=== PATIENT | female | born 1985 | race Caucasian/White ===

== ENCOUNTER 2018-04-30 08:14 | Emergency (ER) | payer SELFPAY ==
--- NOTE | 2018-04-30 09:03 | ERPHSYRPT ---
- History of Present Illness Time Seen by Provider: 04/30/18 08:45 Historian: patient Exam Limitations: no limitations Patient Subjective Stated Complaint: vomiting and upper abd pain/burning for five days Triage Nursing Assessment: ambulated to room per self. skin w/d, color normal. tender in upper abd. abd soft with normal bowel sounds. Physician History: 33 y/o white female presents with epigastric abd pain described as burning. associated vomiting. sx for 5 days. pt has no h/o abd surgeries. pt has not had a menstrual period since the beginning of march. pt does feel bloated belching and gassy. not related to food intake Timing/Duration: day(s) (5) Activities at Onset: none Quality: burning Abdominal Pain Onset Location: epigastric Pain Radiation: no radiation Severity of Pain-Max: mild Severity of Pain-Current: mild Modifying Factors: Improves With: nothing Associated Symptoms: heartburn, nausea, vomiting, No chest pain, No diaphoresis , No diarrhea, No fever/chills, No fatigue, No headache, No neck pain, No shortness of breath, No syncope Allergies/Adverse Reactions: No Known Drug Allergies Allergy (Unverified 04/30/18 08:42) Hx Tetanus, Diphtheria Vaccination/Date Given: No Hx Influenza Vaccination/Date Given: No Hx Pneumococcal Vaccination/Date Given: No - Review of Systems Constitutional: No Symptoms, No Fever, No Chills, No Weakness Eyes: No Symptoms, No Eye Pain Ears, Nose, & Throat: No Symptoms Respiratory: No Symptoms, No Cough, No Dyspnea, No Stridor, No Wheezing Cardiac: No Symptoms, No Chest Pain, No Palpitations, No Syncope Abdominal/Gastrointestinal: Abdominal Pain, Nausea, Vomiting, No Diarrhea Genitourinary Symptoms: No Symptoms, No Dysuria, No Frequency, No Hematuria Musculoskeletal: No Symptoms, No Back Pain, No Deformity, No Fall, No Injury Skin: No Symptoms Neurological: No Symptoms Psychological: No Symptoms Endocrine: No Symptoms Hematologic/Lymphatic: No Symptoms Immunological/Allergic: No Symptoms All Other Systems: Reviewed and Negative - Past Medical History Pertinent Past Medical History: Yes Neurological History: No Pertinent History ENT History: No Pertinent History Cardiac History: No Pertinent History Respiratory History: No Pertinent History Endocrine Medical History: No Pertinent History Musculoskeletal History: No Pertinent History GI Medical History: No Pertinent History History: No Pertinent History Psycho-Social History: No Pertinent History Female Reproductive Disorders: No Pertinent History Other Medical History: polycystic ovarys - Past Surgical History Past Surgical History: No Neuro Surgical History: No Pertinent History Cardiac: No Pertinent History Respiratory: No Pertinent History Gastrointestinal: No Pertinent History Genitourinary: No Pertinent History Musculoskeletal: No Pertinent History Female Surgical History: No Pertinent History - Social History Smoking Status: Current every day smoker How long have you smoked: 18 Exposure to second hand smoke: Yes Drug Use: marijuana Patient Lives Alone: No - Female History Hx Last Menstrual Period: 03/22/18 Hx Now: (unsure) - Nursing Vital Signs Nursing Vital Signs: Initial Vital Signs Temperature 97.2 F 04/30/18 08:18 Pulse Rate 59 L 04/30/18 08:18 Respiratory Rate 16 04/30/18 08:18 Blood Pressure 117/67 04/30/18 08:18 O2 Sat by Pulse Oximetry 99 04/30/18 08:18 Pain Scale Pain Intensity 5 - Physical Exam General Appearance: no apparent distress, alert, anxiety Eye Exam: PERRL/EOMI, eyes nml inspection Ears, Nose, Throat Exam: normal ENT inspection, moist mucous membranes Neck Exam: normal inspection, non-tender, supple, full range of motion Respiratory Exam: normal breath sounds, lungs clear, airway intact, No chest tenderness, No respiratory distress, No accessory muscle use, No rhonchi, No wheezing, No stridor Cardiovascular Exam: regular rate/rhythm, normal heart sounds, normal peripheral pulses Gastrointestinal/Abdomen Exam: soft, normal bowel sounds, tenderness ( epigastric burning), No guarding, No rebound Pelvic Exam: not done Rectal Exam: not done Back Exam: normal inspection, normal range of motion, No CVA tenderness, No vertebral tenderness Extremity Exam: normal inspection, normal range of motion, pelvis stable Neurologic Exam: alert, oriented x 3, cooperative, 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 Skin Exam: normal color, warm, dry Lymphatic Exam: No adenopathy SpO2 Interpretation: normal SpO2: 99 Oxygen Delivery: Room Air - Course Nursing assessment & vital signs reviewed: Yes Ordered Tests: Active Orders 24 hr Category Date Time Status IV Insertion STAT Care 04/30/18 09:04 Active AMYLASE Stat Lab 04/30/18 08:40 Completed CBC W DIFF Stat Lab 04/30/18 08:40 Completed CMP Stat Lab 04/30/18 08:40 Completed CULTURE,URINE Stat Lab 04/30/18 08:40 Received HCG,QUALITATIVE URINE Stat Lab 04/30/18 08:40 Completed LIPASE Stat Lab 04/30/18 08:40 Completed Lactic Acid Stat Lab 04/30/18 09:12 Completed UA W/RFX UR CULTURE Stat Lab 04/30/18 08:40 Completed Medication Summary Discontinued Medications Generic Name Dose Route Start Last Admin Trade Name Freq PRN Reason Stop Dose Admin Al Hydrox/Mg Hydrox/Simethicone Confirm 04/30/18 09:46 Maalox Es 30 Ml Unit Dose Administered 04/30/18 09:47 Dose 30 ml .ROUTE .STK-MED ONE Famotidine 40 mg 04/30/18 09:04 04/30/18 09:23 Pepcid 20 Mg Vial IV 04/30/18 09:05 40 mg STAT ONE Administration Famotidine Confirm 04/30/18 09:19 Pepcid 20 Mg Vial Administered 04/30/18 09:20 Dose 40 mg IV .STK-MED ONE Sodium Chloride 1,000 mls @ 999 mls/hr 04/30/18 09:04 04/30/18 09:23 Sodium Chloride 0.9% 1000 Ml IV 04/30/18 10:04 999 mls/hr .Q1H1M STA Administration Sodium Chloride Confirm 04/30/18 09:19 Sodium Chloride 0.9% 1000 Ml Administered 04/30/18 09:20 Dose 1,000 mls @ ud .ROUTE .STK-MED ONE Lidocaine HCl Confirm 04/30/18 09:46 Xylocaine Hcl Viscous * Administered 04/30/18 09:47 Dose 1 ml .ROUTE .STK-MED ONE Lidocaine HCl Confirm 04/30/18 09:47 Xylocaine Hcl Viscous * Administered 04/30/18 09:48 Dose 14 ml .ROUTE .STK-MED ONE Magnesium Hydroxide 45 ml 04/30/18 09:41 04/30/18 09:50 Gi Cocktail 45 Ml (Maalox/Lidocaine) PO 04/30/18 09:42 45 ml STAT ONE Administration Ondansetron HCl 4 mg 04/30/18 09:04 04/30/18 09:24 Zofran 4 Mg/2 Ml Vial IV 04/30/18 09:05 4 mg STAT ONE Administration Ondansetron HCl Confirm 04/30/18 09:19 Zofran 4 Mg/2 Ml Vial Administered 04/30/18 09:20 Dose 4 mg .ROUTE .STK-MED ONE Lab/Rad Data: Laboratory Result Diagrams 04/30/18 08:40 04/30/18 08:40 Laboratory Results 04/30/18 04/30/18 04/30/18 Range/Units 09:12 08:40 08:40 WBC (4.0-10.5) K/mm3 RBC (4.1-5.4) M/mm3 Hgb (12.0-16.0) gm/dl Hct (35-47) % MCV (78-100) fl MCH (26-32) pg MCHC (32-36) g/dl RDW (11.5-14.0) % Plt Count (150-450) K/mm3 MPV (6-9.5) fl Gran % (36.0-66.0) % Eos # (Auto) (0-0.5) Absolute Lymphs (auto) (1.0-4.6) Absolute Monos (auto) (0.0-1.3) Lymphocytes % (24.0-44.0) % Monocytes % (0.0-12.0) % Eosinophils % (0.00-5.0) % Basophils % (0.0-0.4) % Absolute Granulocytes (1.4-6.9) Basophils # (0-0.4) Sodium (137-145) mmol/L Potassium (3.5-5.1) mmol/L Chloride (98-107) mmol/L Carbon Dioxide (22-30) mmol/L Anion Gap (5-15) MEQ/L BUN (7-17) mg/dL Creatinine (0.52-1.04) mg/dL Estimated GFR ML/MIN Glucose (74-106) mg/dL Lactic Acid 1.6 (0.4-2.0) Calcium (8.4-10.2) mg/dL Total Bilirubin (0.2-1.3) mg/dL AST (14-36) U/L ALT (0-35) U/L Alkaline Phosphatase (38-126) U/L Serum Total Protein (6.3-8.2) g/dL Albumin (3.5-5.0) g/dL Amylase (30-110) U/L Lipase (23-300) U/L Urine Color YELLOW (YELLOW) Urine Appearance SLIGHTLY CLOUDY (CLEAR) Urine pH 5.0 (5-6) Ur Specific [place] 1.013 (1.005-1.025) Urine Protein NEGATIVE (Negative) Urine Ketones NEGATIVE (NEGATIVE) Urine Blood NEGATIVE (0-5) Brian/ul Urine Nitrite NEGATIVE (NEGATIVE) Urine Bilirubin NEGATIVE (NEGATIVE) Urine Urobilinogen NEGATIVE (0-1) mg/dL Ur Leukocyte Esterase NEGATIVE (NEGATIVE) Urine WBC (Auto) 0-2 (0-5) /HPF U Epithel Cells (Auto) FEW (FEW) /HPF Urine Bacteria (Auto) MODERATE (NEGATIVE) /HPF Urine Mucus (Auto) SLIGHT (NEGATIVE) /HPF Urine Culture Reflexed YES (NO) Urine Glucose NEGATIVE (NEGATIVE) mg/dL Urine HCG, Qual NEGATIVE (Negative) 04/30/18 04/30/18 Range/Units 08:40 08:40 WBC 10.0 (4.0-10.5) K/mm3 RBC 4.28 (4.1-5.4) M/mm3 Hgb 13.5 (12.0-16.0) gm/dl Hct 40.3 (35-47) % MCV 94.2 (78-100) fl MCH 31.5 (26-32) pg MCHC 33.5 (32-36) g/dl RDW 12.9 (11.5-14.0) % Plt Count 222 (150-450) K/mm3 MPV 11.3 H (6-9.5) fl Gran % 60.8 (36.0-66.0) % Eos # (Auto) 0.61 H (0-0.5) Absolute Lymphs (auto) 2.53 (1.0-4.6) Absolute Monos (auto) 0.75 (0.0-1.3) Lymphocytes % 25.4 (24.0-44.0) % Monocytes % 7.5 (0.0-12.0) % Eosinophils % 6.1 H (0.00-5.0) % Basophils % 0.2 (0.0-0.4) % Absolute Granulocytes 6.06 (1.4-6.9) Basophils # 0.02 (0-0.4) Sodium 139 (137-145) mmol/L Potassium 4.1 (3.5-5.1) mmol/L Chloride 106 (98-107) mmol/L Carbon Dioxide 25 (22-30) mmol/L Anion Gap 12.0 (5-15) MEQ/L BUN 12 (7-17) mg/dL Creatinine 0.85 (0.52-1.04) mg/dL Estimated GFR > 60.0 ML/MIN Glucose 101 (74-106) mg/dL Lactic Acid (0.4-2.0) Calcium 9.1 (8.4-10.2) mg/dL Total Bilirubin 0.30 (0.2-1.3) mg/dL AST 29 (14-36) U/L ALT 30 (0-35) U/L Alkaline Phosphatase 88 (38-126) U/L Serum Total Protein 7.2 (6.3-8.2) g/dL Albumin 4.3 (3.5-5.0) g/dL Amylase 72 (30-110) U/L Lipase 90 (23-300) U/L Urine Color (YELLOW) Urine Appearance (CLEAR) Urine pH (5-6) Ur Specific [place] (1.005-1.025) Urine Protein (Negative) Urine Ketones (NEGATIVE) Urine Blood (0-5) Brian/ul Urine Nitrite (NEGATIVE) Urine Bilirubin (NEGATIVE) Urine Urobilinogen (0-1) mg/dL Ur Leukocyte Esterase (NEGATIVE) Urine WBC (Auto) (0-5) /HPF U Epithel Cells (Auto) (FEW) /HPF Urine Bacteria (Auto) (NEGATIVE) /HPF Urine Mucus (Auto) (NEGATIVE) /HPF Urine Culture Reflexed (NO) Urine Glucose (NEGATIVE) mg/dL Urine HCG, Qual (Negative) - Progress Progress: improved, re-examined Counseled pt/family regarding: lab results, diagnosis, need for follow-up - Departure Time of Disposition: 10:17 Departure Disposition: Home Clinical Impression: Epigastric abdominal pain Condition: Stable Critical Care Time: No Referrals: DAKOTA ADLER [Primary Care Provider] - Additional Instructions: avoid fatty, greasy spicy foods. follow up with primary doctor for further management. Prescriptions: Ranitidine HCl [Zantac] 150 mg PO BID #10 tablet
[2018-04-30] MEDS ORDERED: Pepcid 20 MG VIAL IV ONE ×2 (09:04→09:19)
[2018-04-30] MEDS ORDERED: Zofran 4 MG/2 ML VIAL IV ONE (09:04)
[2018-04-30] MEDS ORDERED: Sodium Chloride 0.9% 1000 ML 1,000 ML IV STA (09:04)
[2018-04-30] MEDS ORDERED: Zofran 4 MG/2 ML VIAL ONE (09:19)
[2018-04-30] MEDS ORDERED: Sodium Chloride 0.9% 1000 ML 1,000 ML ONE (09:19)
[2018-04-30 09:24] LABS: BASOPHIL % 0.2 % (0.0-0.4); Basophil (Absolute #) 0.02 (0-0.4); Eosinophil % 6.1 % (0.00-5.0); Eosinophil (Absolute #) 0.61 (0-0.5); Granulocyte Absolute (ANC) 6.06 (1.4-6.9); Granulocytes % 60.8 % (36.0-66.0); Hematocrit 40.3 % (35-47); Hemoglobin 13.5 gm/dl (12.0-16.0); Lymphocyte (Absolute #) 2.53 (1.0-4.6); Lymphocytes % 25.4 % (24.0-44.0); Mean Cell Volume 94.2 fl (78-100); Mean Corpuscular Hemoglobin 31.5 pg (26-32); Mean Corpuscular Hgb Concent. 33.5 g/dl (32-36); Mean Platelet Volume 11.3 fl (6-9.5); Monocyte (Absolute #) 0.75 (0.0-1.3); Monocytes % 7.5 % (0.0-12.0); Platelet Count 222 K/mm3 (150-450); Red Blood Count 4.28 M/mm3 (4.1-5.4); Red Cell Distribution Width 12.9 % (11.5-14.0)
[2018-04-30 09:26] LABS: Appearance SLIGHTLY CLOUDY (CLEAR); Bilirubin NEGATIVE (NEGATIVE); Blood NEGATIVE Ery/ul (0-5); Glucose NEGATIVE (NEGATIVE); Ketones NEGATIVE (NEGATIVE); Leukocyte Esterase NEGATIVE (NEGATIVE); Nitrite NEGATIVE (NEGATIVE); Protein,Urine Dip NEGATIVE (Negative); Specific Gravity 1.013 (1.005-1.025); Urobilinogen NEGATIVE mg/dL (0-1)
[2018-04-30 09:37] LABS: ALBUMIN 4.3 g/dL (3.5-5.0); ALKALINE PHOSPHATASE 88 U/L (38-126); AMYLASE 72 U/L (30-110); BLOOD UREA NITROGEN 12 mg/dL (7-17); CHLORIDE 106 mmol/L (98-107); Calcium 9.1 mg/dL (8.4-10.2); Carbon Dioxide 25 mmol/L (22-30); Creatinine 1 0.85 mg/dL (0.52-1.04); Glucose 101 mg/dL (74-106); LIPASE 90 U/L (23-300); Potassium 4.1 mmol/L (3.5-5.1); SGOT/AST 29 U/L (14-36); SGPT/ALT 30 U/L (0-35); SODIUM 139 mmol/L (137-145); Total Protein 7.2 g/dL (6.3-8.2)
[2018-04-30] MEDS ORDERED: GI COCKTAIL 45 ML (Maalox/Lidocaine) PO ONE (09:41)
[2018-04-30] MEDS ORDERED: MAALOX ES 30 ML UNIT DOSE ONE (09:46)
[2018-04-30] MEDS ORDERED: XYLOCAINE HCl Viscous ONE ×2 (09:46→09:47)
[2018-04-30 09:54] VITALS: PULSE 59
[2018-04-30 10:19] VITALS: O2SAT 99
[2018-04-30 10:23] VITALS: BP 105/71
== END 2018-04-30 10:28 | disposition home or self-care (01) ==
LOC: ED 08:14
DX: R10.13 Epigastric pain (principal); R11.2 Nausea with vomiting, unspecified; R12 Heartburn
CPT/HCPCS: 36000; 36415; 80053; 81001; 82150; 83605; 83690; 84703; 85025; 87086; 96360; 96374; 96375; 99284; J2405; A9270-GY

== ENCOUNTER 2019-11-02 19:29 | Emergency (ER) | payer SELFPAY ==
[2019-11-02] MEDS ORDERED: TORAdol 30 mg Injection IM ONE (19:49)
[2019-11-02] MEDS ORDERED: Augmentin 875-125 Tablet PO ONE (19:50)
[2019-11-02] MEDS ORDERED: Augmentin 875-125 Tablet ONE (19:55)
[2019-11-02] MEDS ORDERED: TORAdol 30 mg Injection ONE (19:55)
--- NOTE | 2019-11-02 19:56 | ERPHSYRPT ---
- History of Present Illness Time Seen by Provider: 11/02/19 19:45 Source: patient Exam Limitations: no limitations Physician History: 34 years old female presented in the ER with chief complaint of right earache and sore throat for the last 5 days with progressive worsening. She has taken Tylenol only once. Denies any fever or chills. Having some difficulty swallowing. No difficulty breathing or cough reported. Pain is moderate to severe intensity without any significant aggravating or relieving factors. Denies any ear discharge. No nasal congestion. Denies any sick/COVID contact. Timing/Duration: day(s) (5) Cough Quality/Degree: no cough Possible Cause: no prior episodes Associated Symptoms: earache, sore throat, No chills, No chest pain/soreness, No facial pain, No nasal congestion Allergies/Adverse Reactions: No Known Drug Allergies Allergy (Verified 11/02/19 19:54) Hx Tetanus, Diphtheria Vaccination/Date Given: No Hx Influenza Vaccination/Date Given: No Hx Pneumococcal Vaccination/Date Given: No - Review of Systems Constitutional: No Symptoms Eyes: No Symptoms Ears, Nose, & Throat: Throat Pain, Throat Swelling, Painful Swallowing, No Ear Discharge Respiratory: No Symptoms Cardiac: No Symptoms Abdominal/Gastrointestinal: No Symptoms Musculoskeletal: No Symptoms Skin: No Symptoms Neurological: No Symptoms Psychological: No Symptoms Endocrine: No Symptoms Hematologic/Lymphatic: No Symptoms - Past Medical History Pertinent Past Medical History: Yes Neurological History: No Pertinent History ENT History: No Pertinent History Cardiac History: No Pertinent History Respiratory History: No Pertinent History Endocrine Medical History: No Pertinent History Musculoskeletal History: No Pertinent History GI Medical History: No Pertinent History History: No Pertinent History Psycho-Social History: No Pertinent History Female Reproductive Disorders: No Pertinent History Other Medical History: polycystic ovarys - Past Surgical History Past Surgical History: No Neuro Surgical History: No Pertinent History Cardiac: No Pertinent History Respiratory: No Pertinent History Gastrointestinal: No Pertinent History Genitourinary: No Pertinent History Musculoskeletal: No Pertinent History Female Surgical History: No Pertinent History - Social History Smoking Status: Current every day smoker How long have you smoked: 18 Exposure to second hand smoke: Yes Drug Use: marijuana Patient Lives Alone: No - Nursing Vital Signs Nursing Vital Signs: Initial Vital Signs Temperature 99 F 11/02/19 19:39 Pulse Rate 82 11/02/19 19:39 Respiratory Rate 26 H 11/02/19 19:39 Blood Pressure 129/84 11/02/19 19:39 O2 Sat by Pulse Oximetry 97 11/02/19 19:39 Pain Scale Pain Intensity 4 - Physical Exam General Appearance: no apparent distress, alert, anxiety Eye Exam: PERRL/EOMI, eyes nml inspection, other (Mildly irritated right ear canal. Tympanic membrane intact, dusky/bulging. 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 Skin Exam: normal color Lymphatic Exam: adenopathy (Right submandibular) SpO2 Interpretation: normal O2 Delivery: Room Air - Course Nursing assessment & vital signs reviewed: Yes Ordered Tests: Active Orders 24 hr Category Date Time Status Isolation, Initiate & Maintain Q4H Care 11/02/19 19:53 Active Medication Summary Discontinued Medications Generic Name Dose Route Start Last Admin Trade Name Gena PRN Reason Stop Dose Admin Amoxicillin/Clavulanate Potassium 875 mg 11/02/19 19:50 11/02/19 19:56 Augmentin 875-125 Tablet PO 11/02/19 19:51 875 mg STAT ONE Administration Amoxicillin/Clavulanate Potassium Confirm 11/02/19 19:55 Augmentin 875-125 Tablet Administered 11/02/19 19:56 Dose 875 mg .ROUTE .STK-MED ONE Ketorolac Tromethamine 30 mg 11/02/19 19:49 11/02/19 19:56 Toradol 30 Mg Injection IM 11/02/19 19:50 30 mg STAT ONE Administration Ketorolac Tromethamine Confirm 11/02/19 19:55 Toradol 30 Mg Injection Administered 11/02/19 19:56 Dose 30 mg .ROUTE .STK-MED ONE - Progress Progress: improved, re-examined Air Movement: good Progress Note: 11/02/19 I believe patient has viral URI with resultant otitis media. I will treat her with antibiotic. Given Toradol here and recommended continuing with ibuprofen and Tylenol to go home along with Augmentin. Discussed signs symptoms of worsening needing return which he seems understanding. Blood Culture(s) Obtained: No Antibiotics given: Yes Counseled pt/family regarding: diagnosis, need for follow-up - Departure Departure Disposition: Home Clinical Impression: Acute otitis media Qualifiers: Otitis media type: suppurative Laterality: right Recurrence: non-recurrent Spontaneous tympanic membrane rupture: without spontaneous rupture Qualified Code(s): H66.001 - Acute suppurative otitis media without spontaneous rupture of ear drum, right ear Condition: Fair Critical Care Time: No Referrals: DAKOTA ADLER [Primary Care Provider] - Follow Up with PCP/3 days Instructions: Serous Otitis Media Additional Instructions: Take Tylenol/ibuprofen as needed for pain. Continue with antibiotics. Follow- up with primary care for reevaluation. Return to ER for worsening. Prescriptions: Ibuprofen 600 mg PO Q6HPRN PRN 10 Days #20 tablet PRN Reason: Pain Amox Tr/Potass Clav. 875 mg [Augmentin 875-125 Tablet] 875 mg PO BID 10 Days tablet
[2019-11-02 20:36] VITALS: BP 138/85; PULSE 62; O2SAT 99
== END 2019-11-02 20:35 | disposition home or self-care (01) ==
LOC: ED 19:29
DX: H66.001 Acute suppurative otitis media without spontaneous rupture of ear drum, right ear (principal); J06.9 Acute upper respiratory infection, unspecified; R07.0 Pain in throat; Z72.0 Tobacco use; F12.90 Cannabis use, unspecified, uncomplicated
CPT/HCPCS: 96372; 99283; J1885; A9270-GY